=== PATIENT | female | born 1950 | race Caucasian/White ===

== ENCOUNTER → 2018-02-14 | Outpatient (CLI) | payer MEDICARE ==
[~2018-02-14] MED LIST: ALL300 PO; DICL-192 PO; EST3 PO; METF-450 PO; METF-452 PO; NEBI5TAB PO
--- NOTE | 2018-02-15 08:31 | RADIOLOGY IMAGING REPORT ---
FACILITY: [facility] [place] PATIENT NAME: ARIC WILDER : [id number] MR: [id number] V: [id number] EXAM DATE: ORDERING PHYSICIAN: MAGGY SAMSON TECHNOLOGIST: Mercedes Solorio PROCEDURE:BILATERAL DIGITAL SCREENING MAMMOGRAM WITH CAD ASSISTED INTERPRETATION & 3D TOMOSYNTHESIS COMPARISON:Prior mammograms 02/06/17, 08/10/16, 02/09/16, 08/10/15, 03/04/15, 02/15/15. INDICATIONS:SCREENING FINDINGS: A small to moderate amount of fibroglandular tissue is seen throughout the breasts. The parenchymal pattern has remained stable allowing for difference in mammographic technique & patient positioning. There is no evidence of malignant appearing mass, malignant appearing calcifications or other secondary sign of malignancy in either breast. A surgical clip is again noted in the lower outer portion of the Right breast. DIAGNOSTIC CATEGORY 2--BENIGN FINDING. RECOMMENDATIONS: ROUTINE MAMMOGRAM AND CLINICAL EVALUATION. IMPRESSION: BIRADS 2: Benign finding. No significant abnormality is seen. Dictated by: Anne-Marie Mae M.D. on 02/14/2018 at 16:50 Transcribed by: [email or web address] on 02/15/2018 at 8:00 Approved by: Anne-Marie Mae M.D. on 02/15/2018 at 8:30 [facility]
== END ==
LOC: MAMO 02:32
PROVIDERS: ATTEND Physician Assistant
DX: Z12.31 Encounter for screening mammogram for malignant neoplasm of breast (principal)
CPT/HCPCS: 77063; 77067